=== PATIENT | male | born 1990 | race African-American/Black ===

== ENCOUNTER 2024-03-19 08:55 | Emergency (ER) | payer SELFPAY ==
[~2024-03-19] VITALS: Ht 172.7 cm; Wt 77.1 kg
[2024-03-19 08:59] VITALS: PULSE 88; RESP 15; TEMP 97.4; O2SAT 100
[2024-03-19] MEDS ORDERED: LISINOPRIL-HCT1 EACH PO (09:07)
[2024-03-19 09:10] VITALS: BP 179/72
[2024-03-19] MEDS: CLONIDINE HCL 0.1 MG TAB PO ONE (09:10)
[2024-03-19] MEDS ORDERED: CLONIDINE HCL 0.1 MG TAB ONE (09:13)
== END 2024-03-19 09:10 | disposition home or self-care (01) ==
LOC: ER 09:07
DX: I10 Essential (primary) hypertension (principal)
CPT/HCPCS: 99282